=== PATIENT | male | born 1980 | race Caucasian/White ===

== ENCOUNTER 2018-11-14 09:57 | Day surgery (SDC) | payer OTHER ==
[2018-11-14] MEDS ORDERED: CEFAZOLIN 2 GM/50 ML (PMX) 50 ML IVPB (10:30)
[2018-11-14] MEDS: SOD CHLORIDE 0.9% 1,000 ML IV (10:44)
[2018-11-14] MEDS ORDERED: ALBUTEROL 0.083% (NEB) 2.5 MG/3 ML AMP HHN (13:30)
[2018-11-14] MEDS ORDERED: FENTAnyl 50 MCG/ML VIAL IV ×2 (13:30)
[2018-11-14] MEDS ORDERED: ONDANSETRON 4 MG INJ IV ×2 (13:30→15:30)
[2018-11-14] MEDS ORDERED: MEPERIDINE 25 MG INJ IV (13:30)
[2018-11-14] MEDS ORDERED: HYDROmorphONE 1 MG/5 ML IV SYRINGE IV (13:30)
[2018-11-14] MEDS ORDERED: FENTAnyl 50 MCG/ML VIAL (13:33)
[2018-11-14] MEDS ORDERED: ROPIVACAINE 0.5 % 30 ML VIAL (13:33)
[2018-11-14] MEDS ORDERED: DEXAMETHASONE 4 MG/ML 5 ML INJ (13:47)
[2018-11-14] MEDS: BUPIVACAINE 0.25%/EPI (SDV) 30 ML INJ (14:26)
[2018-11-14] MEDS: POLYMYXIN/BACITRACIN 1L IRRIG (14:26)
[2018-11-14] MEDS ORDERED: SUGAMMADEX SODIUM 200 MG/2 ML VIAL IV (14:56)
[2018-11-14] MEDS ORDERED: ROCURONIUM 50 MG INJ (14:56)
[2018-11-14] MEDS ORDERED: SUCCINYLCHOLINE CHLORIDE 100 MG/5 ML SYG IV (14:56)
[2018-11-14] MEDS ORDERED: PROPOFOL 20 ML (14:56)
[2018-11-14] MEDS ORDERED: CEFAZOLIN 1 GM INJ (14:56)
[2018-11-14] MEDS ORDERED: PROVENTIL HFA 6.7GM INHALER (14:57)
[2018-11-14] MEDS: METOCLOPRAMIDE 10 MG INJ IV (15:30)
[2018-11-14] MEDS: FENTAnyl 50 MCG/ML VIAL IV ×2 (15:30→15:36)
[2018-11-14] MEDS: HYDROmorphONE 1 MG/5 ML IV SYRINGE IV ×2 (15:30→15:37)
[2018-11-14] MEDS ORDERED: IBUPROFEN 600 MG TAB PO (15:30)
[2018-11-14] MEDS ORDERED: HYDROCODONE/APAP (5/325) TAB PO ×2 (15:30)
[2018-11-14] MEDS ORDERED: morphine 2 MG INJ IV (15:30)
[2018-11-14] MEDS: DIPHENHYDRAMINE 50 MG INJ IV (15:31)
[2018-11-14] MEDS: KETOROLAC 30 MG INJ IV (15:31)
== END 2018-11-14 17:50 | disposition home or self-care (01) ==
LOC: SDS 09:57
DX: K43.9 Ventral hernia without obstruction or gangrene (principal)
CPT/HCPCS: 49652